=== PATIENT | male | born 1995 | race Two or more races ===

== ENCOUNTER 2020-06-12 20:53 | Emergency (ER) | payer SELFPAY ==
[~2020-06-12] VITALS: Ht 180.3 cm; Wt 65.8 kg
[2020-06-12 21:59] VITALS: BP 133/81
[2020-06-13] MEDS ORDERED: KETOROLAC TROMETH 60MG/2ML VIAL IM ONE (01:45)
== END 2020-06-13 02:35 | disposition home or self-care (01) ==
LOC: ER 20:53
DX: S33.5XXA Sprain of ligaments of lumbar spine, initial encounter (principal); M54.16 Radiculopathy, lumbar region; J45.909 Unspecified asthma, uncomplicated; X58.XXXA Exposure to other specified factors, initial encounter; Y93.89 Activity, other specified; Y92.89 Other specified places as the place of occurrence of the external cause; Y99.8 Other external cause status
CPT/HCPCS: 72100; 96372; 99283; J1885